=== PATIENT | male | born 1975 | race African-American/Black ===

== ENCOUNTER 2020-01-28 08:40 | Emergency (ER) | payer OTHER ==
[~2020-01-28] VITALS: Ht 165.1 cm; Wt 100.0 kg
[2020-01-28] MEDS ORDERED: IBUP-1506 PO (08:50)
[2020-01-28 10:08] VITALS: BP 125/70
== END 2020-01-28 10:09 | disposition home or self-care (01) ==
LOC: EMS 08:43
DX: K08.89 Other specified disorders of teeth and supporting structures (principal); K05.10 Chronic gingivitis, plaque induced; J45.909 Unspecified asthma, uncomplicated
CPT/HCPCS: Z7502